=== PATIENT | male | born 1970 | race Caucasian/White ===

== ENCOUNTER 2023-01-25 09:56 | Day surgery (SDC) | payer BC ==
[2023-01-20 10:35] VITALS: BMI 29.9
[2023-01-25 11:53] VITALS: PULSE 73; TEMP 98.1
[2023-01-25 11:55] VITALS: BP 134/70; RESP 19
== END 2023-01-25 12:00 | disposition home or self-care (01) ==
LOC: FASU-ENDO 09:56
PROVIDERS: ATTEND Internal Medicine Gastroenterology
PROC: 0DBN8ZX Excision of Sigmoid Colon, Via Natural or Artificial Opening Endoscopic, Diagnostic (ICD-10-PCS; 2023-01-25)
PROC: 0DBM8ZX Excision of Descending Colon, Via Natural or Artificial Opening Endoscopic, Diagnostic (ICD-10-PCS; 2023-01-25)
PROC: 0DBK8ZX Excision of Ascending Colon, Via Natural or Artificial Opening Endoscopic, Diagnostic (ICD-10-PCS; principal; 2023-01-25 11:00)
DX: Z12.11 Encounter for screening for malignant neoplasm of colon (principal); K64.1 Second degree hemorrhoids; D12.2 Benign neoplasm of ascending colon; D12.4 Benign neoplasm of descending colon; K63.5 Polyp of colon; K63.89 Other specified diseases of intestine
CPT/HCPCS: 88305-TC; 88342-TC